=== PATIENT | female | born 1955 | race Caucasian/White ===

== ENCOUNTER 2016-10-10 10:48 | Outpatient (CLI) | payer OTHER ==
[2016-10-10 16:28] LABS: ALT (SGPT) 27 U/L (8-55); AST (SGOT) 22 U/L (5-34); Albumin 4.6 g/dL (3.4-4.8); Alkaline Phosphatase 94 U/L (40-150); Anion Gap 15 mmol/L (10-20); BUN (Urea Nitrogen) 13 mg/dL (9.8-20.1); Bilirubin, Total 0.5 mg/dL (0.2-1.2); Calc. Creatinine Clearance 0 mL/min (70-130); Calcium 9.8 mg/dL (7.8-10.44); Carbon Dioxide 27 mmol/L (23-31); Cardiac Risk 6.3 (Less than 4.5); Chloride 106 mmol/L (98-107); Cholesterol 271 mg/dl (< 200 Desired); Estimated GFR-MDRD 80; Globulin 2.6 g/dL (2.4-3.5); Glucose 89 mg/dL (80-115); HDL Cholesterol 43 mg/dL (>60 Neg Risk); LDL Cholesterol, Calculated 187 mg/dL; Potassium 4.9 mmol/L (3.5-5.1); Protein, Total 7.2 g/dL (6.0-8.3); Sodium 143 mmol/L (136-145); Triglycerides 206 mg/dL (Less than 150)
[2016-10-10 16:45] LABS: #Basophils 0.1 thou/uL (0.0-0.2); #Eosinphils 0.1 thou/uL (0.0-0.7); #Lymphocytes 1.8 thou/uL (1.20-3.40); #Monocytes 0.6 thou/uL (0.11-0.59); #Neutrophils 3.5 thou/uL (1.40-6.50); %Basophils 2.1 % (0.0-1.0); %Eosinophils 2.3 % (0.0-10.0); %Lymphocytes 29.4 % (21.0-51.0); %Neutrophils 57.2 % (42.0-75.0); Hemoglobin 13.7 g/dL (12.0-16.0); Mean Corpuscular HGB CONC 31.9 g/dL (32.0-36.0); Mean Corpuscular Hemoglobin 28.6 pg (27.0-31.0); Mean Corpuscular Volume 89.5 fl (81.0-99.0); Mean Platelet Volume 8.9 fL (7.4-10.4); Platelet Count 216 thou/uL (130-400); RBC Distribution Width 14.5 % (11.5-14.5); Red Blood Cell (RBC) Count 4.79 mill/uL (4.20-5.40); White Blood Cell (WBC) Count 6.1 thou/uL (4.8-10.8)
== END 2016-10-10 10:49 | disposition home or self-care (01) ==
LOC: LABLEX 10:48
PROVIDERS: ATTEND Family Medicine
DX: E78.5 Hyperlipidemia, unspecified (principal); I10 Essential (primary) hypertension
CPT/HCPCS: 80053; 80061; 85025

== ENCOUNTER 2018-05-05 11:39 | Outpatient (CLI) | payer OTHER ==
--- NOTE | 2018-05-05 16:32 | RAD ---
RIGHT ANKLE 3 VIEWS: Date: 05/05/18 There is ossification at the insertion of the Achilles tendon on the calcaneus with bony spurring her e. There is also a large calcaneal spur on the plantar aspect of the calcaneus. There is a small, sha rp bony density on the plantar aspect of the calcaneus anteriorly that looks like it may be a small c ortical avulsion. No major fractures seen. The ankle joint is somewhat narrowed, but otherwise unrema rkable. IMPRESSION: 1. Large calcaneal spur. 2. Dense ossification at the insertion of the Achilles tendon on the calcaneus. 3. Possible small cortical avulsion from the plantar aspect of the calcaneus anteriorly, age indeter minate. POS: HOME
== END 2018-05-05 11:40 | disposition home or self-care (01) ==
LOC: BURRAD 11:39
PROVIDERS: ATTEND Nurse Practitioner
DX: M76.61 Achilles tendinitis, right leg (principal); M21.6X1 Other acquired deformities of right foot; M77.31 Calcaneal spur, right foot